=== PATIENT | female | born 1945 | race Caucasian/White ===

== ENCOUNTER 2021-08-11 12:01 | Emergency (ER) | payer MEDICARE, SELFPAY ==
[2021-08-11 12:02] VITALS: BP 164/71; PULSE 74; RESP 16; TEMP 36.7; O2SAT 98; BMI 26.9
--- NOTE | 2021-08-11 12:32 | HMH.EDGENADL ---
ED Disposition Clinical Impression: Essential hypertension Subconjunctival hemorrhage Qualifiers: Laterality: right Qualified Code(s): H11.31 - Conjunctival hemorrhage, right eye Disposition: Home, Self-Care Condition on Discharge: Good Instructions: DI for High Blood Pressure, DI for Subconjunctival Hemorrhage Additional Instructions: Continue your current blood pressure medication, call your primary care doctor for follow-up of your blood pressure. Referrals: King Negrete [Primary Care Provider] - - Critical Care Critical Care Time: No Attestation: On 08/11/21, the high probability of a clinically significant, sudden or life threatening deterioration of the following system(s) required my full and direct attention, intervention and personal management. The time I documented below is in addition to time spent performing reported procedures but includes the following listed in this critical care notation. Medical Decision Making - [place] Inquiry Pt receiving controlled substance: No Vital Signs: 08/11/21 12:02 Temperature 98.0 F Temperature Source Oral Pulse Rate [Right Radial] 74 Respiratory Rate 16 Blood Pressure [Left Arm] 164/71 H Blood Pressure Mean [Left Arm] 102 Blood Pressure Source [Left Arm] Automatic Cuff Blood Pressure Position [Left Arm] Sitting 02 Sat by Pulse Oximetry 98 Oxygen Delivery Method Room Air General Adult HPI - General Chief complaint: Recheck/Abnormal Lab/Rx Stated complaint: High b/p at [facility] Time Seen by Provider: 08/11/21 12:40 Mode of Arrival: Ambulatory Limitations: No Limitations Description of Symptoms (Recalled from ER Triage Doc. by RN): Pt reports home health staff took her bp this morning, it was elevated they advised her to get checked out. Pt states she was going to the eye doctor r/t possible busted blood vessel in R eye, states they eye doctor was not in so she went to [facility], states at [facility] told her her bp was elevated and told her to come to ER for evaluation. Pt denies headache, dizziness, SOA, chest pain. Pt states she was seen by PCP yesterday and bp was 140s/70s. - History of Present Illness HPI narrative: Patient states that she is here for my eye . Says that she awakened this morning with a blood spot on the white part of her right eye. No visual disturbance or eye pain. She tried to go to the eye doctor to get it checked out, but he was not in. She went to [facility] and was told her blood pressure was high and they come to the emergency department. She saw her primary care doctor yesterday for routine checkup and her blood pressure was 147 systolic. She admits to eating salty ham every day and thinks that is what causes her blood pressure to go up and says that she is going to have to stop eating that. No headache, chest pain, shortness of breath, blurry vision. She is not on any blood thinners. She takes carvedilol and lisinopril. [facility] History - Hepatitis A Screen Drug use history?: No High risk sexual behaviors?: No History of sexually transmitted infection?: No Currently employed?: No Childcare worker?: No Do you have indoor plumbing?: Yes Do you have electricity?: Yes Attestation statement:: This patient has been screened for Hepatitis A risk factors. ROS Obtained: Yes Systems reviewed as appropriate & no additional complaints - Constitutional Constitutional: Denies fever(s) - Eyes Eyes: Denies blind spots, Denies blurry vision, Denies change in vision, Denies diplopia, Denies floaters, Denies loss of vision, Denies eye pain, Denies photophobia, Denies seeing flashes - Cardiovascular Cardiovascular: Denies chest pain - Respiratory Respiratory: Denies dyspnea - Gastrointestinal Gastrointestingal: Denies: abdominal pain, diarrhea, vomiting - Neurologic Neurologic: Denies headache(s), Denies numbness, Denies weakness Physical Exam - General General appearance: alert, in
--- NOTE | 2021-08-11 12:46 | PC.NURSE ---
visual acuity 20/40 [place] with glasses on
[2021-08-11 13:18] VITALS: BP 177/78; PULSE 73; RESP 18; TEMP 36.7; O2SAT 95
== END 2021-08-11 13:18 | disposition home or self-care (01) ==
PROVIDERS: Emergency Provider Emergency Medicine; PCP Internal Medicine
DX: H11.31 Conjunctival hemorrhage, right eye (principal); I10 Essential (primary) hypertension
CPT/HCPCS: 99281

== ENCOUNTER 2022-05-12 09:20 | Emergency (ER) | payer MEDICARE, SELFPAY ==
[2022-05-12 09:21] VITALS: BP 181/94; PULSE 77; RESP 16; TEMP 37.1; O2SAT 97; BMI 24.7
[2022-05-12 09:45] VITALS: BP 197/98; PULSE 68; RESP 16; O2SAT 99
--- NOTE | 2022-05-12 09:45 | XR_ITS ---
PROCEDURE INFORMATION: Exam: XR Chest Exam date and time: 05/12/2022 9:53 AM Age: 76 years old Clinical indication: Cough TECHNIQUE: Imaging protocol: XR of the chest. Views: 1 view. COMPARISON: No relevant prior studies available. FINDINGS: Lungs: Unremarkable. No consolidation. Pleural spaces: Unremarkable. No pleural effusion. No pneumothorax. Heart/Mediastinum: Unremarkable. No cardiomegaly. Bones/joints: Unremarkable. IMPRESSION: No acute findings.
--- NOTE | 2022-05-12 09:54 | HMH.EDGENADL ---
ED Disposition Clinical Impression: COVID-19 virus infection, Cervical disc disease, Neck pain, Left hip pain Headache Qualifiers: Headache type: unspecified Headache chronicity pattern: acute headache Intractability: intractable Qualified Code(s): R51.9 - Headache, unspecified Abdominal pain Qualifiers: Abdominal location: upper abdomen, unspecified Qualified Code(s): R10.10 - Upper abdominal pain, unspecified Disposition: Home, Self-Care Condition on Discharge: Good Instructions: DI for COVID-19 (Suspected or Confirmed ), DI for Hip Pain, DI for Neck Pain, DI for Degenerative Disc Disease, DI for Abdominal Pain-Adult, DI for Headache Additional Instructions: Tylenol as needed for pain. Follow-up with your primary care provider for further evaluation. On your CAT scan of the abdomen the pancreas was possibly slightly irregularly shaped and needs further evaluation. Gallbladder also was distended and needs further evaluation, outpatient gallbladder ultrasound. Urine culture has been performed, results generally take 2 to 3 days. Follow-up the results of this test with your primary care provider within 2 to 3 days. COVID-19 instruction: Rest, drink plenty of fluids. Tylenol or Ibuprofen for fever and/or aches and pains. Monitor your symptoms. IF YOU HAVE AN EMERGENCY WARNING SIGN (INCLUDING TROUBLE BREATHING), SEEK EMERGENCY MEDICAL CARE IMMEDIATELY. COVID-19 Isolation: People with COVID-19 should isolate for 5 days. Then if they are asymptomatic (no symptoms) or their symptoms are resolving (without fever for 24 hours), follow that by 5 days of wearing a mask when around others to minimize the risk of infecting people you encounter. If you test positive for COVID-19 and never develop symptoms, day 0 is the day of your positive viral test (based on the date you were tested) and day 1 is the first full day after your positive test. If you develop symptoms after testing positive, your 5-day isolation period must start over. Day 0 is your first day of symptoms. Day 1 is the first full day after your symptoms developed. What to do: Stay in a separate room from other household members, if possible. Use a separate bathroom, if possible. Avoid contact with other members of the household and pets. Don?t share personal household items, like cups, towels, and utensils. Wear a mask when around other people if able. Referrals: King Negrete [Primary Care Provider] - - Critical Care Critical Care Time: No Attestation: On 05/12/22, the high probability of a clinically significant, sudden or life threatening deterioration of the following system(s) required my full and direct attention, intervention and personal management. The time I documented below is in addition to time spent performing reported procedures but includes the following listed in this critical care notation. Medical Decision Making - Medical Records Medical records reviewed: Yes: I reviewed the patient's medical records. - [place]co Inquiry Pt receiving controlled substance: No Vital Signs: 05/12/22 09:21 05/12/22 09:45 05/12/22 10:05 Temperature 98.8 F Temperature Source Oral Pulse Rate 68 Pulse Rate [Radial] 77 Respiratory Rate 16 16 15 Blood Pressure 197/98 H 180/82 H Blood Pressure [Right Arm] 181/94 H Blood Pressure Mean [Right Arm] 123 Blood Pressure Position [Right Arm] Sitting 02 Sat by Pulse Oximetry 97 99 Oxygen Delivery Method Room Air 05/12/22 10:25 Temperature Temperature Source Pulse Rate Pulse Rate [Radial] Respiratory Rate 14 Blood Pressure 177/90 H Blood Pressure [Right Arm] Blood Pressure Mean [Right Arm] Blood Pressure Position [Right Arm] 02 Sat by Pulse Oximetry Oxygen Delivery Method - Lab Data Lab Results 05/12/22 09:40: SARS-CoV-2 (PCR) Detected A, Influenza A Untype (PCR) Not detected, Influenza Type B (PCR) Not detected 05/12/22 09:
[2022-05-12 09:55] LABS: Influenza A, PCR Not Detected (NotDetected); Influenza B, PCR Not Detected (NotDetected)
--- NOTE | 2022-05-12 10:00 | XR_ITS ---
PROCEDURE INFORMATION: Exam: XR Left Hip Exam date and time: 05/12/2022 11:48 AM Age: 76 years old Clinical indication: Hip pain and pelvic pain; Left hip; Additional info: Left hip pain, no injury TECHNIQUE: Imaging protocol: XR Left hip. Views: 2 or 3 views hip with pelvis when performed. COMPARISON: CT ABDOMEN PELVIS WO CON 05/12/2022 11:43 AM FINDINGS: Bones/joints: Unremarkable. No acute fracture. Soft tissues: Unremarkable. IMPRESSION: No acute findings.
--- NOTE | 2022-05-12 10:00 | PC.NURSE ---
rad at the bedside for portable xr
--- NOTE | 2022-05-12 10:00 | CT_ITS ---
PROCEDURE INFORMATION: Exam: CT Head Without Contrast Exam date and time: 05/12/2022 11:38 AM Age: 76 years old Clinical indication: Pain; Headache not specified; Additional info: Headache 2 days TECHNIQUE: Imaging protocol: Computed tomography of the head without contrast. Radiation optimization: All CT scans at this facility use at least one of these dose optimization techniques: automated exposure control; mA and/or kV adjustment per patient size (includes targeted exams where dose is matched to clinical indication); or iterative reconstruction. COMPARISON: No relevant prior studies available. FINDINGS: Brain: Central and cortical brain atrophy evident, appropriate for patient age. There is nonspecific periventricular low attenuation, likely microangiopathic disease. No acute intracranial hemorrhage. Cerebral ventricles: No ventriculomegaly. Paranasal sinuses: Visualized sinuses are unremarkable. No fluid levels. Mastoid air cells: Visualized mastoid air cells are well aerated. Bones/joints: Unremarkable. No acute fracture. Soft tissues: Unremarkable. IMPRESSION: No acute intracranial abnormality.
--- NOTE | 2022-05-12 10:00 | CT_ITS ---
PROCEDURE INFORMATION: Exam: CT Cervical Spine Without Contrast Exam date and time: 05/12/2022 11:41 AM Age: 76 years old Clinical indication: Neck pain; Additional info: Neck pain 1 mo TECHNIQUE: Imaging protocol: Computed tomography images of the cervical spine without contrast. Radiation optimization: All CT scans at this facility use at least one of these dose optimization techniques: automated exposure control; mA and/or kV adjustment per patient size (includes targeted exams where dose is matched to clinical indication); or iterative reconstruction. COMPARISON: CT HEAD/BRAIN WO CON 05/12/2022 11:38 AM FINDINGS: Bones/joints: No acute fracture. Discs/Spinal canal/Neural foramina: Severe disc space narrowing at C5-C6 and C6-C7. Mild multilevel facet arthropathy with foraminal stenosis most significant at these same levels. Lungs: Lung apices are normal. Soft tissues: Unremarkable. IMPRESSION: 1. No acute fracture. 2. Severe disc space narrowing at C5-C6 and C6-C7.
--- NOTE | 2022-05-12 10:00 | CT_ITS ---
PROCEDURE INFORMATION: Exam: CT Abdomen And Pelvis Without Contrast Exam date and time: 05/12/2022 11:43 AM Age: 76 years old Clinical indication: Abdominal pain; Generalized; Additional info: Abdo pain, recent covid TECHNIQUE: Imaging protocol: Computed tomography of the abdomen and pelvis without contrast. Radiation optimization: All CT scans at this facility use at least one of these dose optimization techniques: automated exposure control; mA and/or kV adjustment per patient size (includes targeted exams where dose is matched to clinical indication); or iterative reconstruction. Other contrast: Oral, gastrograffin; COMPARISON: CR XR CHEST PORTABLE 05/12/2022 9:53 AM FINDINGS: Liver: Normal. No mass. Gallbladder and bile ducts: Gallbladder distended, without radiopaque gallstone. Pancreas: Contour deformity of the distal pancreas, in the region of the tail. Limited without intravenous contrast although mass cannot be excluded. Measures 2.8 x 2.6 cm the, axial series 3, image 94. Additional workup recommended. Spleen: Normal. No splenomegaly. Adrenal glands: Normal. No mass. Kidneys and ureters: Normal. No hydronephrosis. Stomach and bowel: Unremarkable. No obstruction. No mucosal thickening. Appendix: No evidence of appendicitis. Intraperitoneal space: Unremarkable. No free air. No significant fluid collection. Vasculature: Unremarkable. No abdominal aortic aneurysm. Lymph nodes: Unremarkable. No enlarged lymph nodes. Urinary bladder: Unremarkable as visualized. Reproductive: Unremarkable as visualized. Bones/joints: Unremarkable. No acute fracture. Soft tissues: Unremarkable. IMPRESSION: 1. Contour deformity of the distal pancreas, in the region of the tail. Limited without intravenous contrast although mass cannot be excluded. Measures 2.8 x 2.6 cm the, axial series 3, image 94. Additional workup recommended. 2. Gallbladder distended, without radiopaque gallstone.
[2022-05-12 10:05] VITALS: BP 180/82; RESP 15
--- NOTE | 2022-05-12 10:10 | PC.NURSE ---
pt finished drinking oral contrast. radiology notified
--- NOTE | 2022-05-12 10:13 | HMH.ITSTN ---
patient refused oral contrast -- nurse said to scan without-- patient has epigastric pain
[2022-05-12 10:16] LABS: Basophils # 0.1 K/mm3 (0-0.2); Basophils % 1.3 % (0.1-2.0); Eosinophils # 0.1 K/mm3 (0.0-0.4); Eosinophils % 2.5 % (0.1-12.0); Hematocrit 36.8 % (37.0-47.0); Hemoglobin 12.9 g/dL (12.2-16.2); Lymphocytes # 0.9 K/mm3 (0.7-4.5); Lymphocytes % 21.9 % (10-50); Mean Corpuscular HGB Conc 35.2 g/dL (31.8-35.4); Mean Corpuscular Hemoglobin 31.6 pg (27.0-31.2); Mean Corpuscular Volume 89.7 fl (81-99); Mean Platelet Volume 8.5 fl (7.4-10.4); Monocytes # 0.4 K/mm3 (0.1-1.0); Monocytes % 10.1 % (1.7-9.3); Neutrophils # 2.7 K/mm3 (1.8-7.8); Neutrophils % 64.2 % (37.0-80.0); Platelet Count 250 K/mm3 (142-424); Red Cell Distribution Width 13.3 % (11.5-17.5); White Blood Count 4.2 K/mm3 (4.8-10.8)
--- NOTE | 2022-05-12 10:16 | ECG_ITS ---
APPROVED REPORT Exam: Resting ECG HR:65 bpm ECG Measurements Heart Rate 65 AXES SD 186 P 58 QRSd 77 QRS 14 QT 411 T 46 QTc 423 Conclusion SINUS RHYTHM NORMAL ECG UNCONFIRMED REPORT Electronically signed by : Lenard Orellana MD 05/12/2022 20:15:44
[2022-05-12 10:24] LABS: Coronavirus 19, PCR Detected (NotDetected)
[2022-05-12 10:25] VITALS: BP 177/90; RESP 14
[2022-05-12 10:33] LABS: Chloride 92 mmol/L (98-107); Sodium 123 mmol/L (136-145)
[2022-05-12 10:36] LABS: Alanine Aminotransferase 21 U/L (12-78); Albumin Level 3.5 g/dl (3.5-5.0); Albumin/Globulin Ratio 1.2 (1.1-1.8); Alkaline Phosphatase 39 U/L (38-126); Aspartate Amino Transferase 40 U/L (14-36); Bilirubin,Total 0.9 mg/dl (0.2-1.3); Blood Urea Nitrogen 9 mg/dl (7-17); Creatinine Clearance Estimated 48 mL/min (50-200); Estimated Glomerular Filt Rate 61 ml/min (>60); GFR (African American) 74 ML/MIN (>60); Globulin 2.9 g/dL (1.3-3.2); Lipase 92 U/L (23-300); Total Protein,Serum 6.4 g/dl (6.3-8.2)
[2022-05-12 10:37] LABS: Calcium 8.7 mg/dl (8.4-10.2); Carbon Dioxide 27 mmol/L (22.0-30.0); Glucose 109 mg/dl (74-100)
--- NOTE | 2022-05-12 10:52 | PC.NURSE ---
pt ambulated to the restroom with stand by assist
[2022-05-12 10:57] LABS: Microscopic, Urine URINE MICROSCOPIC (MICROSCOPIC)
[2022-05-12 11:01] LABS: Troponin I < 0.01 ng/ml (0.00-0.034)
[2022-05-12 11:03] LABS: Appearance,Urine CLOUDY (Clear); Bilirubin,Urine Negative (Negative); Blood, Urine Negative (Negative); Color,Urine YELLOW (Yellow); Glucose,Urine (UA) Negative (Negative); Ketones,Urine TRACE (Negative); Leukocyte Esterase,Urine 1+ (Negative); Nitrate,Urine Negative (Negative); PH,Urine 6.5 (5.0-8.5); Protein,Urine Negative (Negative); Specific Gravity, Urine 1.015 (1.005-1.030)
[2022-05-12 11:41] LABS: Bacteria,Urine Trace /lpf; RBC,Urine Occasional #/hpf (0-3); Squamous Epithelial Cell,Urine Occasional #/hpf (0-5)
--- NOTE | 2022-05-12 11:56 | PC.NURSE ---
pt returned from CT
--- NOTE | 2022-05-12 12:53 | PC.NURSE ---
PT AND FAMILY UPDATED ON PLAN OF CARE
--- NOTE | 2022-05-12 13:41 | PC.NURSE ---
called radiology to check the status of cspine scan. rad states there was an issue with transmission and we should have the report soon
[2022-05-12 14:07] VITALS: BP 165/78; PULSE 87; RESP 18; TEMP 36.6; O2SAT 98
[2022-05-12 14:36] LABS: Troponin I < 0.01 ng/ml (0.00-0.034)
== END 2022-05-12 14:08 | disposition home or self-care (01) ==
PROVIDERS: Emergency Provider Emergency Medicine; PCP Internal Medicine
DX: U07.1 COVID-19 (principal); B96.1 Klebsiella pneumoniae [K. pneumoniae] as the cause of diseases classified elsewhere; R06.02 Shortness of breath; R51.9 Headache, unspecified; R10.10 Upper abdominal pain, unspecified; R10.84 Generalized abdominal pain; R10.13 Epigastric pain; M50.30 Other cervical disc degeneration, unspecified cervical region; M25.552 Pain in left hip; Q45.3 Other congenital malformations of pancreas and pancreatic duct
CPT/HCPCS: 70450; 71045; 72125; 73502; 74176; 80053; 81001; 83690; 84484; 85025; 87086; 87088; 87186; 93005; 99285; C9803; U0003; U0005